=== PATIENT | female | born 1995 | race Caucasian/White ===

== ENCOUNTER 2017-03-20 08:04 | Emergency (ER) | payer OTHER ==
[~2017-03-20] VITALS: Ht 157.5 cm; Wt 78.8 kg
[~2017-03-20 08:04] MED LIST: ALBU8.5H3 INH; CEPH-443 PO; IBUP-1542 PO; MED4DP PO; PRO AIR; SULF1TAB31 PO
[2017-03-20 08:07] VITALS: Ht 157.5 cm; Wt 78.8 kg
--- NOTE | 2017-03-20 08:34 | ERD ---
ER Documentation Chief Complaint Date/Time DATE: 03/20/17 TIME: 08:32 Chief Complaint s/p 1&d bartholino's cyst HPI This 21-year-old female presents with a request for recheck on her right pelvic abscess drained 2 days ago. She feels much better. She denies fevers, redness , discharge. ROS All systems reviewed and are negative except as per history of present illness. Medications Home Meds Active Scripts Ibuprofen* (Motrin*) 600 Mg Tab, 600 MG PO Q6, #30 TAB Prov:SHANICE ABURTO 03/18/17 Cephalexin* (Keflex*) 500 Mg Capsule, 500 MG PO QID for 7 Days, CAP Prov:LAMONTE,SHANICE C 03/18/17 Sulfamethoxazole/Trimethoprim* (Bactrim Ds* Tablet) 1 Each Tablet, 1 TAB PO BID for 7 Days, #14 TAB Prov:SHANICE ABURTO 03/18/17 Methylprednisolone* (Medrol* DOSE PACK) 4 Mg/Dose-Pack Tab.ds.pk, 4 MG PO . DIRECTED, #1 PACKET Prov:JAMIE MIMS DO 09/06/15 Albuterol Sulfate* (Proair HFA*) 8.5 Gm Hfa.aer.ad, 2 PUFF INH Q4H Y for WHEEZING AND SOB, #1 INHALER Prov:JAMIE MIMS DO 09/06/15 Reported Medications [Pro Air] No Conflict Check 10/11/09 Allergies Allergies: Coded Allergies: No Known Drug Allergies (Verified Allergy, Mild, 09/06/15) PMhx/Soc History of Surgery: No Anesthesia Reaction: No Hx Neurological Disorder: No Hx Respiratory Disorders: Yes (ASTHMA) Hx Cardiac Disorders: No Hx Psychiatric Problems: No Hx Miscellaneous Medical Probl: No Hx Alcohol Use: No Hx Substance Use: No Hx Tobacco Use: No Smoking Status: Never smoker Physical Exam Vitals Vital Signs Date Time Temp Pulse Resp B/P Pulse Ox O2 Delivery O2 Flow Rate FiO2 03/20/17 08:07 97.8 67 18 116/55 99 Physical Exam Const:Alert, [id number] Head: Atraumatic Eyes: Normal Conjunctiva ENT: Normal External Ears, Nose and Mouth. Neck: Full range of motion..~ No meningismus. Resp: Clear to auscultation bilaterally Cardio: Regular rate and rhythm, no murmurs Abd: Soft, non tender, non distended. Normal bowel sounds Skin: No petechiae or rashes. On the right pubis area there is a healing abscess. Gauze was removed. There is no residual fluctuance, or significant induration. Back: No midline or flank tenderness Ext: No cyanosis, or edema Neur: Awake and alert Psych: Normal Mood and Affect Procedures/MDM Patient presents with a satisfactorily healing right pubic area abscess. There is no evidence of recurrent abscess, necrotizing fasciitis, significant cellulitis. She will discharged home instructions to continue antibiotics and recheck for worsening redness, fevers, new worsening symptoms Departure Diagnosis: Primary Impression: Encounter for wound re-check Condition: Stable Patient Instructions: July-Anal Abscess, I And D Additional Instructions: Recheck for recurrent redness, swelling, fevers, new symptoms. Continue antibiotics. DEIDRA LÓPEZ MD Mar 20, 2017 08:34
== END 2017-03-20 09:02 | disposition home or self-care (01) ==
LOC: FTE 08:04
DX: Z48.01 Encounter for change or removal of surgical wound dressing (principal); J45.909 Unspecified asthma, uncomplicated
CPT/HCPCS: 99281

== ENCOUNTER 2017-12-09 21:22 | Emergency (ER) | END 2017-12-10 00:23 | disposition home or self-care (01) ==

== ENCOUNTER 2019-01-20 07:52 | Emergency (ER) | payer OTHER ==
[~2019-01-20] VITALS: Ht 167.6 cm; Wt 75.6 kg
[~2019-01-20 07:52] MED LIST changes: -ALBU8.5H3 INH; +ALBU8.5H8 INH; +CEPH500C PO
[2019-01-20 07:53] VITALS: Ht 167.6 cm; Wt 75.6 kg
[2019-01-20] MEDS ORDERED: SULF1TAB31 PO (08:27)
[2019-01-20] MEDS ORDERED: CEPH-443 PO (08:27)
[2019-01-20] MEDS ORDERED: IBUP-1542 PO (08:27)
--- NOTE | 2019-01-20 09:16 | ERD ---
ER Documentation Chief Complaint Chief Complaint abscess on groin x 2 days HPI This is a very pleasant 23-year-old female presented to the emergency department complaining of abscess to the right groin region for the past 2 days. Overall symptoms have worsened. She states she has history of similar symptoms in the past which was relieved with antibiotics and incision and drainage. She does report associated pain which is moderate in severity and intermittent. She denies any fevers, chills, or other symptoms at this time. ROS All systems reviewed and are negative except as per history of present illness. Medications Home Meds Active Scripts Ibuprofen* (Motrin*) 600 Mg Tab, 600 MG PO Q6, #30 TAB Prov:LAWRENCE WEST PA-C 01/20/19 Sulfamethoxazole/Trimethoprim* (Bactrim Ds* Tablet) 1 Each Tablet, 1 TAB PO BID, #14 TAB Prov:LAWRENCE WEST PA-C 01/20/19 Cephalexin* (Keflex*) 500 Mg Capsule, 500 MG PO QID for 7 Days, CAP Prov:LAWRENCE WEST PA-C 01/20/19 Sulfamethoxazole/Trimethoprim* (Bactrim Ds* Tablet) 1 Each Tablet, 1 TAB PO BID, #14 TAB Prov:SHANICE ABURTO C 12/10/17 Cephalexin* (Cephalexin*) 500 Mg Capsule, 500 MG PO BID for 7 Days, #14 CAP Prov:ZEESHAN ABURTONA C 12/10/17 Ibuprofen* (Motrin*) 600 Mg Tab, 600 MG PO Q6, #30 TAB Prov:SHANICE ABURTO C 03/18/17 Cephalexin* (Keflex*) 500 Mg Capsule, 500 MG PO QID for 7 Days, CAP Prov:SHANICE ABURTO C 03/18/17 Sulfamethoxazole/Trimethoprim* (Bactrim Ds* Tablet) 1 Each Tablet, 1 TAB PO BID for 7 Days, #14 TAB Prov:SHANICE ABURTO C 03/18/17 Methylprednisolone* (Medrol* DOSE PACK) 4 Mg/Dose-Pack Tab.ds.pk, 4 MG PO . DIRECTED, #1 PACKET Prov:JAMIE MIMS DO 09/06/15 Albuterol Sulfate* (Proair HFA*) 8.5 Gm Hfa.aer.ad, 2 PUFF INH Q4H PRN for WHEEZING AND SOB, #1 INHALER Prov:JAMIE MIMS DO 09/06/15 Reported Medications [Pro Air] No Conflict Check 10/11/09 Allergies Allergies: Coded Allergies: No Known Drug Allergies (Verified Allergy, Mild, 12/09/17) PMhx/Soc History of Surgery: No Anesthesia Reaction: No Hx Neurological Disorder: No Hx Respiratory Disorders: Yes (ASTHMA) Hx Cardiac Disorders: No Hx Psychiatric Problems: No Hx Miscellaneous Medical Probl: No Hx Alcohol Use: No Hx Substance Use: No Hx Tobacco Use: No Smoking Status: Never smoker FmHx Family History: No diabetes Physical Exam Vitals Vital Signs Date Temp Pulse Resp B/P (MAP) Pulse Ox O2 O2 Flow FiO2 Time Delivery Rate 01/20/19 97.9 72 16 126/67 99 07:53 (86) Physical Exam Const: No acute distress Head: Atraumatic Eyes: Normal Conjunctiva ENT: Normal External Ears, Nose and Mouth. Neck: Full range of motion. No meningismus. Resp: No respiratory distress. Skin: There is a 1 cm x 1 cm fluctuant abscess noted to the right groin region. No surrounding erythema. No lymphatic streaking. No significant warmth. No active drainage. Ext: No cyanosis, or edema Neur: Awake and alert Psych: Normal Mood and Affect Procedures/MDM 23-year-old female presents to the emergency department for abscess to the right groin region. Abscess Incision and Drainage with irrigation by me: Location: Right groin Anesthesia: Local 1% Lidocaine Technique: Irrigated. Disrupted loculations w/ instrumentation. Copious purulent drainage expressed. Packing: None Complications: Neurovascularly intact post procedure 48 hour wound check. Scar minimization instructions given. Patient will need to follow-up with her primary care physician within the next 24 to 48 hours and return to the department immediately for any new or worsening or concerning symptoms. I shared my medical decision making with the patient and she understands and agrees with the plan. Departure Diagnosis: Primary Impression: Abscess Condition: Fair Patient Instructions: Abscess, Incision And Drainage Referrals: COMM[facility]ITY CLINICS YOU HAVE RECEIVED A MEDICAL SCREENING EXAM AND THE RESULTS INDICATE THAT YOU DO NOT HAVE A CONDITION THAT REQUIRES URGENT TREATMENT IN THE EMERGENCY DEPARTMENT. FURTHER EVALUATION AND TREATMENT OF YOUR CONDITION CAN WAIT UNTIL YOU ARE SEEN IN YOUR DOCTORS OFFICE WITHIN THE NEXT 1-2 DAYS. IT IS YOUR RESPONSIBILITY TO MAKE AN APPOINTMENT FOR FOLOW-UP CARE. IF YOU HAVE A PRIMARY DOCTOR --you should call your primary doctor and schedule an appointment IF YOU DO NOT HAVE A PRIMARY DOCTOR YOU CAN CALL OUR PHYSICIAN REFERRAL HOTLINE AT IF YOU CAN NOT AFFORD TO SEE A PHYSICIAN YOU CAN CHOSE FROM THE FOLLOWING [facility] [address] [facility]. [facility] [address] [facility] [facility] [address] [facility] [address] [facility]. [facility] [address] [facility]. [facility] [address] Additional Instructions: Call your primary care doctor TOMORROW for an appointment during the next 1-2 days.See the doctor sooner or return here if your condition worsens before your appointment time. ALWRENCE WEST PA-C Jan 20, 2019 09:16
== END 2019-01-20 08:49 | disposition home or self-care (01) ==
LOC: FTE 07:52
DX: L02.214 Cutaneous abscess of groin (principal); J45.909 Unspecified asthma, uncomplicated
CPT/HCPCS: 10060; Z7502